=== PATIENT | female | born 1940 | race African-American/Black ===

== ENCOUNTER 2019-11-24 00:52 | Emergency (ER) | payer MEDICARE ==
[~2019-11-24] VITALS: Ht 157.5 cm; Wt 86.2 kg
[2019-11-24 01:13] VITALS: BP_SYST 151
[2019-11-24] MEDS ORDERED: NACL 0.9% 1,000 ML IV ONE (01:13)
[2019-11-24] MEDS ORDERED: ONDANSETRON HCL 4 MG/2 ML VIAL IVP ONE (01:15)
[2019-11-24] MEDS ORDERED: KETOROLAC TROMETHAMINE 30 MG VIAL IVP ONE (01:15)
--- NOTE | 2019-11-24 01:17 | NUR ---
HERE FOR LEFT UPPER QUADRANT ABDOMINAL PAIN RADIATING TO THE BACK. DENIES NAUSEA,VOMITING,DIARRHEA,FEVER,URINARY SYMPTOMS. WENT FOR CT SCAN OF ABDOMEN AND PELVIS VIA [facility].
--- NOTE | 2019-11-24 01:17 | NUR ---
Placed in room 01 . Placed on library services assistant, blood pressure machine and pulse oximeter. To gown for exam. Side rails up. Report given to Jori HARVEY.
--- NOTE | 2019-11-24 01:32 | NUR ---
ER Dr. Mcmillan at bedside examining patient.
--- NOTE | 2019-11-24 01:40 | NUR ---
GAUGE 20 IV LINE ESTABLISHED TO THE LEFT AC. BLOOD ALSO DRAWN. WILL SEND TO THE LAB. NS 1LITER BOLUS, TORADOL 30 MG IVP AND ZOFRAN 4 MG IVP GIVEN ORDERED.
[2019-11-24 02:37] LABS: BASOPHILS % (AUTO) 0.3 % (0.0-2.0); EOSINOPHILS # (AUTO) 0.1 K/uL (0.0-0.4); EOSINOPHILS % (AUTO) 0.8 % (0.0-4.0); HEMATOCRIT 41.3 % (36-48); HEMOGLOBIN 13.6 g/dL (12.0-16.0); LYMPHOCYTES # (AUTO) 2.6 K/uL (1.0-5.5); LYMPHOCYTES % (AUTO) 32.7 % (20.5-51.5); MEAN CORPUSCULAR HEMOGLOBIN 30 pg (27-31); MEAN CORPUSCULAR HGB CONC 33 % (32-36); MEAN CORPUSCULAR VOLUME 92 fL (79.0-98.0); MONOCYTES # (AUTO) 0.6 K/uL (0.0-1.0); MONOCYTES % (AUTO) 7.7 % (1.7-9.3); NEUTROPHILS # (AUTO) 4.6 K/uL (1.8-7.7); NEUTROPHILS % (AUTO) 58.5 % (40.0-70.0); PLATELET COUNT (AUTO) 195 K/uL (130-430); RED BLOOD CELL COUNT(AUTO) 4.47 MIL/uL (4.2-6.2); RED CELL DISTRIBUTION WIDTH 13.9 % (9.0-15.0); WHITE BLOOD COUNT (AUTO) 7.8 K/uL (4.8-10.8)
[2019-11-24 02:40] LABS: ANION GAP 8 (5-15); CALCIUM 8.7 mg/dL (8.4-11.0); CHLORIDE 100 mmol/L (98-107); CREATININE 1.38 mg/dL (0.55-1.30); GLUCOSE 117 mg/dL (70-99); POTASSIUM 4.4 mmol/L (3.5-5.1); SODIUM SERUM 137 mmol/L (136-145); UREA NITROGEN, BLOOD 22 mg/dL (8-21)
[2019-11-24 02:47] LABS: ALANINE AMINOTRANSFERASE 31 U/L (12-78); ALBUMIN 3.6 g/dL (3.4-4.8); ASPARTATE AMINOTRANSFERASE 29 U/L (10-37); TOTAL BILIRUBIN 0.4 mg/dL (0.0-1.0)
--- NOTE | 2019-11-24 03:45 | NUR ---
URINE DIPSTICK DONE. REPORT REVIEWED BY SCAR. MD SAID NO NEED TO SEND SPECIMEN TO THE LAB.
--- NOTE | 2019-11-24 04:04 | NUR ---
ER-MD BACK AT BESIDE TO RE-EVALUATE AND DISCUSS PLAN OF CARE WITH PT.
[2019-11-24] MEDS ORDERED: ACETAMINOPHEN 500 MG TABLET PO ONE (04:15)
--- NOTE | 2019-11-24 04:19 | NUR ---
TYLENOL 1 GM PO GIVEN.
--- NOTE | 2019-11-24 04:26 | NUR ---
DISCHARGED STABLE AND IMPROVED. PRESCRIPTION,VERBAL AND WRITTEN AFTERCARE INSTRUCTIONS GIVEN. VERBALIZED UNDERSTANDING. LEFT AMBULATORY WITH STABLE GAIT.
[2019-11-24 04:36] VITALS: BP_SYST 141
== END 2019-11-24 04:36 | disposition home or self-care (01) ==
LOC: SED 00:52
DX: R07.82 Intercostal pain (principal); I10 Essential (primary) hypertension; E11.9 Type 2 diabetes mellitus without complications; E78.00 Pure hypercholesterolemia, unspecified; Z88.1 Allergy status to other antibiotic agents; Z90.710 Acquired absence of both cervix and uterus
CPT/HCPCS: 36415; 74176; 80053; 81002; 82962; 84484; 85025; 93005; 96374; 96375; 99285; J1885; J2405; J7030

== ENCOUNTER 2020-03-03 18:05 | Emergency (ER) | payer MEDICARE ==
[~2020-03-03] VITALS: Ht 157.5 cm; Wt 86.2 kg
[2020-03-03 18:48] VITALS: BP_SYST 124
[2020-03-03] MEDS ORDERED: NACL 0.9% 1,000 ML IV ONE (19:54)
[2020-03-03 20:30] LABS: BASOPHILS % (AUTO) 0.4 % (0.0-2.0); EOSINOPHILS % (AUTO) 0.3 % (0.0-4.0); HEMATOCRIT 43.5 % (36-48); HEMOGLOBIN 14.5 g/dL (12.0-16.0); LYMPHOCYTES # (AUTO) 1.5 K/uL (1.0-5.5); LYMPHOCYTES % (AUTO) 19.6 % (20.5-51.5); MEAN CORPUSCULAR HEMOGLOBIN 31 pg (27-31); MEAN CORPUSCULAR HGB CONC 33 % (32-36); MEAN CORPUSCULAR VOLUME 92 fL (79.0-98.0); MONOCYTES # (AUTO) 0.5 K/uL (0.0-1.0); MONOCYTES % (AUTO) 6.4 % (1.7-9.3); NEUTROPHILS # (AUTO) 5.4 K/uL (1.8-7.7); NEUTROPHILS % (AUTO) 73.3 % (40.0-70.0); PLATELET COUNT (AUTO) 169 K/uL (130-430); RED BLOOD CELL COUNT(AUTO) 4.74 MIL/uL (4.2-6.2); RED CELL DISTRIBUTION WIDTH 13.9 % (9.0-15.0); WHITE BLOOD COUNT (AUTO) 7.4 K/uL (4.8-10.8)
[2020-03-03 20:37] LABS: ANION GAP 6 (5-15); CALCIUM 8.6 mg/dL (8.4-11.0); CHLORIDE 100 mmol/L (98-107); CREATININE 1.27 mg/dL (0.55-1.30); GLUCOSE 208 mg/dL (70-99); SODIUM SERUM 136 mmol/L (136-145); UREA NITROGEN, BLOOD 17 mg/dL (8-21)
[2020-03-03 20:43] LABS: ALANINE AMINOTRANSFERASE 37 U/L (12-78); ALBUMIN 3.7 g/dL (3.4-4.8); ASPARTATE AMINOTRANSFERASE 22 U/L (10-37); TOTAL BILIRUBIN 0.3 mg/dL (0.0-1.0)
[2020-03-03 20:54] LABS: ACETAMINOPHEN < 1 ug/mL (1-30); ALCOHOL, BLOOD < 3 mg/dL (<10)
[2020-03-03] MEDS ORDERED: KETOROLAC TROMETHAMINE 30 MG VIAL IVP ONE (21:15)
[2020-03-03 22:38] VITALS: BP_SYST 168
[2020-03-03 22:57] LABS: BARBITURATE, URINE NEGATIVE (NEG <=200); BENZODIAZEPINE, URINE NEGATIVE (NEG <=150); CANNABINOID, URINE POSITIVE (NEG <=50); COCAINE, URINE NEGATIVE (NEG <=150); METHAMPHETAMINES SCREEN,URINE NEGATIVE (NEG <=500); OPIATE, URINE NEGATIVE (NEG <=100); PHENCYCLIDINE SCREEN,URINE NEGATIVE (NEG <=25); UR TRICYCLIC ANTIDEPRESSANTS NEGATIVE (NEG <=300); URINE AMPHETAMINE NEGATIVE (NEG <=500); URINE METHADONE NEGATIVE (NEG <=200); URINE OXYCODONE SCREEN NEGATIVE (NEG <=100); URINE PROPOXYPHENE SCREEN NEGATIVE (NEG <=300)
[2020-03-04] MEDS ORDERED: TUBERCULIN,PURIF.PROT.DERIV. 0.1 ML SYR ID ONE (01:50)
== END 2020-03-03 22:40 | disposition home or self-care (01) ==
LOC: SED 18:05
DX: R40.4 Transient alteration of awareness (principal); F12.929 Cannabis use, unspecified with intoxication, unspecified; R11.2 Nausea with vomiting, unspecified; I10 Essential (primary) hypertension; E78.00 Pure hypercholesterolemia, unspecified
CPT/HCPCS: 36415; 80053; 80307; 85025; 93005; 96361; 96374; 99284; G0480; G0481; G0482; J1885; J7030; 86580

== ENCOUNTER 2021-02-23 19:08 | Emergency (ER) | payer MEDICARE ==
[~2021-02-23] VITALS: Ht 157.5 cm; Wt 86.2 kg
[2021-02-23 19:35] VITALS: BP_SYST 146
[2021-02-23] MEDS ORDERED: ACETAMINOPHEN 500 MG TABLET PO ONE (20:30)
[2021-02-24 01:43] VITALS: BP_SYST 146
== END 2021-02-24 01:43 | disposition home or self-care (01) ==
LOC: SED 19:08
DX: S09.90XA Unspecified injury of head, initial encounter (principal); M54.2 Cervicalgia; I10 Essential (primary) hypertension; E11.9 Type 2 diabetes mellitus without complications; Z79.899 Other long term (current) drug therapy
CPT/HCPCS: 70450-TC; 72125-TC; 76376; 82962; 93005; 99285

== ENCOUNTER 2022-06-26 09:59 | Emergency (ER) | payer OTHER, MEDICARE ==
[~2022-06-26] VITALS: Ht 165.1 cm; Wt 113.4 kg
--- NOTE | 2022-06-26 10:10 | NUR ---
RECEIVED PT FROM [facility]. PT BIBA WITH C/O DIZZINESS, H/A, NAUSEA,. PT ROLLED OUT OF BED AND STAYED ON THE GROUND X2 HOURS THEN WAS ABLE TO CALL 911. PT IS AAOX4, LETHARGIC. PT IS BRADYCARDIC HR IN 48-61. RESP E/U. LUNG SOUNDS CTA. ON R/A O2 SAT 100% ON R/A. PT HAS C/O NAUSEA. ABDOMEN SOFT, ROUND, NONTENDER. SKIN WARM, INTACT. DISTAL PULSES NORMAL. PT HAS BUE 1+ EDEMA. PT STATED SHE HAS NOT TAKEN HER LASIX X3 DAYS.
[2022-06-26 10:11] VITALS: BP_SYST 197
--- NOTE | 2022-06-26 10:21 | NUR ---
DR. REYES AT BEDSIDE TO ASSESS PT.
--- NOTE | 2022-06-26 10:33 | NUR ---
# 20 gauge angiocath placed to LAC. Use of asceptic technique. Opsite placed over site. Blood return noted. Blood for lab drawn from site. Flushed with 10 cc of normal saline. No evidence of infiltration noted. Patient tolerated well.
[2022-06-26] MEDS ORDERED: MECLIZINE HCL 25 MG TABLET (ANITVERT) PO ONE (10:45)
[2022-06-26] MEDS ORDERED: KETOROLAC TROMETHAMINE 30 MG VIAL IVP ONE (10:45)
--- NOTE | 2022-06-26 10:49 | NUR ---
LABS AND COVID SWAB OBTAINED.
[2022-06-26 11:00] LABS: BASOPHILS % (AUTO) 0.6 % (0.0-2.0); EOSINOPHILS % (AUTO) 0.9 % (0.0-4.0); HEMATOCRIT 38.7 % (36-48); HEMOGLOBIN 13.4 g/dL (12.0-16.0); LYMPHOCYTES # (AUTO) 1.4 K/uL (1.0-5.5); LYMPHOCYTES % (AUTO) 28.8 % (20.5-51.5); MEAN CORPUSCULAR HEMOGLOBIN 31 pg (27-31); MEAN CORPUSCULAR HGB CONC 35 % (32-36); MEAN CORPUSCULAR VOLUME 90 fL (79.0-98.0); MONOCYTES # (AUTO) 0.4 K/uL (0.0-1.0); MONOCYTES % (AUTO) 8.8 % (1.7-9.3); NEUTROPHILS % (AUTO) 60.9 % (40.0-70.0); PLATELET COUNT (AUTO) 161 K/uL (130-430); RED BLOOD CELL COUNT(AUTO) 4.32 MIL/uL (4.2-6.2); RED CELL DISTRIBUTION WIDTH 13.7 % (9.0-15.0); WHITE BLOOD COUNT (AUTO) 4.9 K/uL (4.8-10.8)
--- NOTE | 2022-06-26 11:07 | NUR ---
PT TAKEN FOR CT SCAN.
[2022-06-26 11:37] LABS: ANION GAP 8 (5-15); CALCIUM 8.9 mg/dL (8.4-11.0); CHLORIDE 101 mmol/L (98-107); GLUCOSE 162 mg/dL (70-99); POTASSIUM 3.6 mmol/L (3.5-5.1); UREA NITROGEN, BLOOD 24 mg/dL (8-21)
[2022-06-26 11:43] LABS: ALANINE AMINOTRANSFERASE 25 U/L (12-78); ALBUMIN 3.2 g/dL (3.4-4.8); ASPARTATE AMINOTRANSFERASE 19 U/L (10-37); TOTAL BILIRUBIN 0.4 mg/dL (0.0-1.0)
[2022-06-26 11:44] LABS: BILIRUBIN,URINE NEGATIVE (NEGATIVE); BLOOD, URINE NEGATIVE (NEGATIVE); CLARITY/URINE CLEAR (CLEAR); COLOR,URINE YELLOW (YELLOW); GLUCOSE,URINE NEGATIVE (NEGATIVE); KETONES,URINE 1+ (NEGATIVE); LEUKOCYTE ESTERASE ,URINE TRACE (NEGATIVE); NITRITE, URINE NEGATIVE (NEGATIVE); PH,URINE 6.5 (5.0-8.0); PROTEIN URINE 1+ (NEGATIVE); UROBILINOGEN,URINE 0.2 (0.2-1.0)
[2022-06-26] MEDS ORDERED: LOVA20TA2 PO (11:45)
[2022-06-26] MEDS ORDERED: ALLO100T91 PO (11:45)
[2022-06-26] MEDS ORDERED: ASA81 PO (11:45)
[2022-06-26] MEDS ORDERED: ATEN50TA PO (11:45)
[2022-06-26] MEDS ORDERED: POTA-80 PO (11:45)
[2022-06-26] MEDS ORDERED: LOSA50TA3 PO (11:45)
--- NOTE | 2022-06-26 11:45 | NUR ---
MED REC AND BELONGINGS COMPLETED.
[2022-06-26] MEDS ORDERED: INSU100V42 SQ (11:52)
[2022-06-26] MEDS ORDERED: TRAM50TA PO (12:13)
[2022-06-26] MEDS ORDERED: NITR-85 PO (12:13)
[2022-06-26] MEDS ORDERED: MECL-225 PO (12:13)
[2022-06-26 12:39] VITALS: BP_SYST 186
--- NOTE | 2022-06-26 12:42 | NUR ---
Patient given written and verbal discharge instructions and verbalizes understanding. ER MD discussed with patient the results and treatment provided. Patient in stable condition. ID arm band removed. IV catheter removed intact and dressing applied, no active bleeding. Rx of NITROFURNTOIN, MECLIZINE, TRAMADOL given. Patient educated on pain management and to follow up with PMD. Pain Scale 0/10. Opportunity for questions provided and answered. Medication side effect fact sheet provided.
--- NOTE | 2022-06-26 12:45 | NUR ---
DR. REYES AT BEDSIDE TO DISCUSS POC.
--- NOTE | 2022-06-26 12:56 | NUR ---
PT RECEIVED EDUCATION FROM DR. REYES, PT NEEDS TO FOLLOW UP WITH PCP FOR USE OF BETA [facility]. PT VERBALIZED UNDERSTANDING.
[2022-06-26 12:58] LABS: BACTERIA,URINE FEW /HPF (None Seen); RBC,URINE 0-3 /HPF (0-3)
== END 2022-06-26 12:42 | disposition home or self-care (01) ==
LOC: SED 09:59
DX: R42 Dizziness and giddiness (principal); N39.0 Urinary tract infection, site not specified; M54.50 Low back pain, unspecified; E11.9 Type 2 diabetes mellitus without complications; I10 Essential (primary) hypertension; Z88.5 Allergy status to narcotic agent; Z79.899 Other long term (current) drug therapy; Z20.822 Contact with and (suspected) exposure to COVID-19
CPT/HCPCS: 99284; 74176; 87426; 80053; 81000; 82962; 85025; 36415; 76376; 96372; 83605; J8597; J1885

== ENCOUNTER 2022-09-15 16:40 | Emergency (ER) | payer MEDICARE ==
[~2022-09-15] VITALS: Ht 157.5 cm; Wt 81.6 kg
[~2022-09-15 16:40] MED LIST: ALLO100T91 PO; ASA81 PO; ATEN50TA PO; INSU100V42 SQ; LOSA50TA3 PO; LOVA20TA2 PO; MECL-225 PO; NITR-85 PO; POTA-80 PO; TRAM50TA PO
[2022-09-15 17:34] VITALS: BP_SYST 148
--- NOTE | 2022-09-15 18:19 | NUR ---
Patient to [facility]EEV[facility] abraham for evaluation.
--- NOTE | 2022-09-15 18:41 | NUR ---
ER Dr. Lewis at bedside examining patient.
[2022-09-15] MEDS ORDERED: TETRACAINE HCL/PF 0.5% OPHTHALMIC DROPS 4 ML OP ONE (18:45)
[2022-09-15 19:24] VITALS: BP_SYST 132
--- NOTE | 2022-09-15 19:24 | NUR ---
Patient given written and verbal discharge instructions and verbalizes understanding. ER MD discussed with patient the results and treatment provided. Patient in stable condition. ID arm band removed. No rx given. Patient educated on pain management and to follow up with PMD. Pain Scale 0/10 Opportunity for questions provided and answered.
== END 2022-09-15 19:24 | disposition home or self-care (01) ==
LOC: SED 16:40
DX: H11.32 Conjunctival hemorrhage, left eye (principal); R05.9 Cough, unspecified; E11.9 Type 2 diabetes mellitus without complications; I10 Essential (primary) hypertension; Z88.5 Allergy status to narcotic agent; Z79.899 Other long term (current) drug therapy
CPT/HCPCS: 99283

== ENCOUNTER 2023-12-24 05:01 | Emergency (ER) | payer OTHER, MEDICARE ==
[~2023-12-24] VITALS: Ht 157.5 cm; Wt 83.9 kg
[~2023-12-24 05:01] MED LIST changes: -INSU100V42 SQ; +INSU100V44 SQ; +LOSA-413 PO; -LOSA50TA3 PO
[2023-12-24 05:08] VITALS: BP_SYST 164; PULSE 52; RESP 20; TEMP 96.7; O2SAT 97
[2023-12-24] MEDS ORDERED: POTA8TAB66 PO (05:23)
[2023-12-24] MEDS ORDERED: ALLO100T PO (05:23)
[2023-12-24] MEDS ORDERED: LOVA10TA55 PO (05:23)
[2023-12-24] MEDS: NITROGLYCERIN 1 INCH (GM) OINT. TP ONE (05:48)
[2023-12-24] MEDS: MORPHINE 4 MG INJ. 4 MG/ML VIAL IVP ONE (05:48)
[2023-12-24 05:52] LABS: BASOPHILS # (AUTO) 0.1 K/uL (0.0-0.2); BASOPHILS % (AUTO) 0.9 % (0.0-2.0); EOSINOPHILS # (AUTO) 0.1 K/uL (0.0-0.4); EOSINOPHILS % (AUTO) 1.8 % (0.0-4.0); HEMATOCRIT 39.6 % (36-48); HEMOGLOBIN 13.6 g/dL (12.0-16.0); LYMPHOCYTES # (AUTO) 2.4 K/uL (1.0-5.5); LYMPHOCYTES % (AUTO) 40.5 % (20.5-51.5); MEAN CORPUSCULAR HEMOGLOBIN 31 pg (27-31); MEAN CORPUSCULAR HGB CONC 34 % (32-36); MEAN CORPUSCULAR VOLUME 91 fL (79.0-98.0); MONOCYTES # (AUTO) 0.6 K/uL (0.0-1.0); MONOCYTES % (AUTO) 9.6 % (1.7-9.3); NEUTROPHILS # (AUTO) 2.8 K/uL (1.8-7.7); NEUTROPHILS % (AUTO) 47.2 % (40.0-70.0); PLATELET COUNT (AUTO) 192 K/uL (130-430); RED BLOOD CELL COUNT(AUTO) 4.36 MIL/uL (4.2-6.2); RED CELL DISTRIBUTION WIDTH 13.5 % (9.0-15.0); WHITE BLOOD COUNT (AUTO) 5.8 K/uL (4.8-10.8)
[2023-12-24 06:07] LABS: ANION GAP 9 (5-15); CALCIUM 8.4 mg/dL (8.4-11.0); CARBON DIOXIDE 27 mmol/L (23-29); CHLORIDE 98 mmol/L (98-107); CREATININE 1.12 mg/dL (0.55-1.30); GLUCOSE 152 mg/dL (74-106); POTASSIUM 3.4 mmol/L (3.5-5.1); SODIUM SERUM 134 mmol/L (136-145); UREA NITROGEN, BLOOD 19 mg/dL (8-21)
[2023-12-24 06:14] LABS: ALANINE AMINOTRANSFERASE 38 U/L (12-78); ALBUMIN 3.4 g/dL (3.4-4.8); ASPARTATE AMINOTRANSFERASE 26 U/L (10-37); BILIRUBIN,DIRECT 0.1 mg/dL (0.0-0.3); TOTAL BILIRUBIN 0.3 mg/dL (0.0-1.0); TOTAL PROTEIN, SERUM 6.7 g/dL (6.4-8.3)
[2023-12-24] MEDS: ONDANSETRON HCL 4 MG/2 ML VIAL IVP ONE ×2 (06:15→10:28)
[2023-12-24] MEDS: ASPIRIN 81 MG TAB.CHEW PO ONE (08:17)
[2023-12-24 09:32] VITALS: TEMP 98
[2023-12-24 13:51] VITALS: BP_SYST 148; PULSE 56; RESP 18; O2SAT 98
== END 2023-12-24 10:25 | disposition short-term general hospital (02) ==
LOC: SED 05:01
DX: I20.9 Angina pectoris, unspecified (principal); I12.9 Hypertensive chronic kidney disease with stage 1 through stage 4 chronic kidney disease, or unspecified chronic kidney disease; N18.30 Chronic kidney disease, stage 3 unspecified; E11.22 Type 2 diabetes mellitus with diabetic chronic kidney disease; Z88.5 Allergy status to narcotic agent
CPT/HCPCS: 99285; 96374; 71045; 96375; 80076; 80048; 83880; 85025; 85379; 84484; 36415; 96376; 82948; J2405; J2270